=== PATIENT | female | born 1960 | race Asian ===

== ENCOUNTER → 2024-03-11 13:17 | Outpatient (REF) | payer BC, SELFPAY | LOC: HWRAD 13:17 | PROVIDERS: ATTENDING PHYSICIAN Obstetrics & Gynecology; FAMILY PHYSICIAN Internal Medicine | DX: N95.0 Postmenopausal bleeding (principal) | CPT/HCPCS: 76830; 76856 ==

== ENCOUNTER → 2024-03-18 11:28 | Outpatient (REF) | payer BC, SELFPAY | LOC: HWRAD 11:28 | PROVIDERS: ATTENDING PHYSICIAN Student in an Organized Health Care Education/Training Program; FAMILY PHYSICIAN Internal Medicine | DX: R10.13 Epigastric pain (principal) | CPT/HCPCS: 76700 ==